=== PATIENT | male | born 1945 | race Caucasian/White ===

== ENCOUNTER 2017-02-01 16:27 | Inpatient (IN) | payer OTHER, MEDICARE ==
[~2017-02-01] VITALS: Ht 175.3 cm; Wt 92.2 kg
[~2017-02-01 16:27] MED LIST: ALBU2.5V INH; ALBU8.5H5 INH; AMLO5TAB2 PO; BLOOD PRESSURE PILL PO; DIAZ5TAB PO; LANS30CA PO; MECL25TA4 PO; MOME13HF INH; [UNRECOGNIZED DRUG - REMARK] PO
[2017-02-01] MEDS ORDERED: ALBUTEROL/IPRATROPIUM 2.5MG/0.5MG, 3 ML NPPB ONE (17:00)
[2017-02-01 17:11] LABS: HEMATOCRIT 46.5 % (39.2-51.8); WHITE BLOOD COUNT 13.8 x10^3/uL (3.4-10)
[2017-02-01 17:23] LABS: BLOOD UREA NITROGEN 12 mg/dL (7-18)
[2017-02-01 17:28] LABS: IS PT STATUS REG ER OR PRE ER? YES
[2017-02-01] MEDS ORDERED: CEFTRIAXONE PMX 1GM/50ML 50 ML IV ONE (18:30)
[2017-02-01] MEDS ORDERED: AZITHROMYCIN 500 MG in SODIUM CHLORIDE 0.9% 250 ML IV ONE (18:30)
[2017-02-01] MEDS: SODIUM CHLORIDE 0.9% 1,000 ML IV SCH ×2 (19:07→21:00)
[2017-02-01] MEDS ORDERED: ONDANSETRON 2MG/ML, 2ML IVPush PRN (19:30)
[2017-02-01] MEDS ORDERED: ACETAMINOPHEN 325 MG TABLET PO PRN (19:30)
[2017-02-01] MEDS ORDERED: morphine SULFATE 10 MG/ML, 1ML IVPush PRN (19:30)
[2017-02-01 19:54] VITALS: BP 120/67
[2017-02-01] MEDS: CEFTRIAXONE PMX 1GM/50ML 50 ML IV SCH (20:00)
[2017-02-01] MEDS: HYDROcodone/APAP 10/325 MG TABLET PO PRN (21:13)
[2017-02-01] MEDS: AZITHROMYCIN 500 MG in SODIUM CHLORIDE 0.9% 250 ML IV SCH (21:14)
[2017-02-01] MEDS: ENOXAPARIN 40 MG/0.4 ML SQ SCH (21:14)
[2017-02-01] MEDS: PANTOPROZOLE 40MG TABLET PO SCH (21:48)
[2017-02-02 02:59] VITALS: BP 122/63
[2017-02-02] MEDS ORDERED: ALBUTEROL/IPRATROPIUM 2.5MG/0.5MG, 3 ML NPPB SCH (06:00)
[2017-02-02 06:20] LABS: HEMATOCRIT 43.8 % (39.2-51.8); HEMOGLOBIN 14.8 g/dL (13.7-18.0); WHITE BLOOD COUNT 11.3 x10^3/uL (3.4-10)
[2017-02-02 06:34] LABS: BLOOD UREA NITROGEN 14 mg/dL (7-18)
[2017-02-02 06:58] VITALS: BP 128/79
[2017-02-02] MEDS ORDERED: PANTOPROZOLE 40MG TABLET PO SCH (07:30)
[2017-02-02] MEDS: SODIUM CHLORIDE 0.9% 1,000 ML IV SCH (08:45)
[2017-02-02] MEDS: AMLODIPINE 5 MG TABLET PO SCH (08:46)
[2017-02-02] MEDS: PANTOPROZOLE 40MG TABLET PO SCH ×2 (08:46→22:29)
[2017-02-02] MEDS: FLUTICASONE/VILANTEROL 200-25MCG/INH INH SCH (08:59)
[2017-02-02] MEDS: ALBUTEROL/IPRATROPIUM 2.5MG/0.5MG, 3 ML NPPB SCH ×3 (09:00→19:43)
[2017-02-02 13:19] VITALS: BP 131/69
[2017-02-02] MEDS: HYDROcodone/APAP 10/325 MG TABLET PO PRN (19:08)
[2017-02-02] MEDS: DIAZEPAM 5 MG TABLET PO PRN (19:08)
[2017-02-02] MEDS: ENOXAPARIN 40 MG/0.4 ML SQ SCH (19:36)
[2017-02-02] MEDS: CEFTRIAXONE PMX 1GM/50ML 50 ML IV SCH (19:36)
[2017-02-02] MEDS: AZITHROMYCIN 500 MG in SODIUM CHLORIDE 0.9% 250 ML IV SCH (19:41)
[2017-02-02 20:01] VITALS: BP 154/84
[2017-02-03 02:36] VITALS: BP 128/70
[2017-02-03 05:21] LABS: HEMATOCRIT 41.2 % (39.2-51.8); HEMOGLOBIN 14.1 g/dL (13.7-18.0); WHITE BLOOD COUNT 11.2 x10^3/uL (3.4-10)
[2017-02-03 05:34] LABS: BLOOD UREA NITROGEN 16 mg/dL (7-18)
[2017-02-03] MEDS ORDERED: NICOTINE 21 MG/24 HR PATCH.TD24 TD ONE (07:30)
[2017-02-03] MEDS: HYDROcodone/APAP 10/325 MG TABLET PO PRN ×3 (07:42→19:53)
[2017-02-03] MEDS: FLUTICASONE/VILANTEROL 200-25MCG/INH INH SCH (07:42)
[2017-02-03] MEDS: AMLODIPINE 5 MG TABLET PO SCH (07:42)
[2017-02-03 07:45] VITALS: BP 131/74
[2017-02-03] MEDS: ALBUTEROL/IPRATROPIUM 2.5MG/0.5MG, 3 ML NPPB SCH ×4 (08:36→19:25)
[2017-02-03] MEDS ORDERED: ALBUTEROL/IPRATROPIUM 2.5MG/0.5MG, 3 ML NPPB PRN (09:00)
[2017-02-03] MEDS ORDERED: POTASSIUM CHLORIDE 20 MEQ TAB.ER.PRT PO ONE (10:00)
[2017-02-03] MEDS ORDERED: FUROSEMIDE 40 MG/4 ML IV ONE (10:00)
[2017-02-03] MEDS: GUAIFENESIN 100 MG/5 ML, 10ML UDC PO PRN ×2 (13:54→19:47)
[2017-02-03 14:00] VITALS: BP 130/74
[2017-02-03 16:50] VITALS: BP 142/83
[2017-02-03] MEDS: PANTOPROZOLE 40MG TABLET PO SCH (19:47)
[2017-02-03] MEDS: CEFTRIAXONE PMX 1GM/50ML 50 ML IV SCH (19:47)
[2017-02-03] MEDS: ENOXAPARIN 40 MG/0.4 ML SQ SCH (19:47)
[2017-02-03] MEDS: DIAZEPAM 5 MG TABLET PO PRN ×2 (19:48→19:59)
[2017-02-03] MEDS: AZITHROMYCIN 500 MG in SODIUM CHLORIDE 0.9% 250 ML IV SCH (19:51)
[2017-02-03 20:00] VITALS: BP 138/72
[2017-02-04 01:46] VITALS: BP 148/74
[2017-02-04] MEDS: HYDROcodone/APAP 10/325 MG TABLET PO PRN ×4 (02:59→20:52)
[2017-02-04 05:29] LABS: BLOOD UREA NITROGEN 15 mg/dL (7-18)
[2017-02-04 06:01] LABS: HEMATOCRIT 42.7 % (39.2-51.8); HEMOGLOBIN 14.4 g/dL (13.7-18.0); WHITE BLOOD COUNT 8.6 x10^3/uL (3.4-10)
[2017-02-04] MEDS: ALBUTEROL/IPRATROPIUM 2.5MG/0.5MG, 3 ML NPPB SCH ×4 (07:10→19:29)
[2017-02-04 08:30] VITALS: BP 136/75
[2017-02-04] MEDS: FLUTICASONE/VILANTEROL 200-25MCG/INH INH SCH (08:49)
[2017-02-04] MEDS: GUAIFENESIN 100 MG/5 ML, 10ML UDC PO PRN (08:49)
[2017-02-04] MEDS: AMLODIPINE 5 MG TABLET PO SCH (08:50)
[2017-02-04 13:10] VITALS: BP 162/85
[2017-02-04 14:53] VITALS: BP 154/82
[2017-02-04] MEDS ORDERED: ONDANSETRON 2MG/ML, 2ML IVPush PRN (19:00)
[2017-02-04] MEDS ORDERED: ACETAMINOPHEN 325 MG TABLET PO PRN (19:00)
[2017-02-04 20:43] VITALS: BP 136/76
[2017-02-04] MEDS: PANTOPROZOLE 40MG TABLET PO SCH (20:52)
[2017-02-04] MEDS: CEFTRIAXONE PMX 1GM/50ML 50 ML IV SCH (20:53)
[2017-02-04] MEDS: ENOXAPARIN 40 MG/0.4 ML SQ SCH (20:55)
[2017-02-04] MEDS: AZITHROMYCIN 500 MG in SODIUM CHLORIDE 0.9% 250 ML IV SCH (21:40)
[2017-02-05 02:50] VITALS: BP 129/83
[2017-02-05] MEDS: HYDROcodone/APAP 10/325 MG TABLET PO PRN ×4 (02:53→23:01)
[2017-02-05 05:51] LABS: HEMATOCRIT 41.6 % (39.2-51.8); HEMOGLOBIN 14.3 g/dL (13.7-18.0); WHITE BLOOD COUNT 8.3 x10^3/uL (3.4-10)
[2017-02-05] MEDS: GUAIFENESIN 100 MG/5 ML, 10ML UDC PO PRN (05:59)
[2017-02-05 06:34] LABS: BLOOD UREA NITROGEN 14 mg/dL (7-18)
[2017-02-05 07:21] VITALS: BP 136/68
[2017-02-05] MEDS: AMLODIPINE 5 MG TABLET PO SCH (08:00)
[2017-02-05] MEDS: FLUTICASONE/VILANTEROL 200-25MCG/INH INH SCH (08:01)
[2017-02-05] MEDS: ALBUTEROL/IPRATROPIUM 2.5MG/0.5MG, 3 ML NPPB SCH ×4 (08:05→18:52)
[2017-02-05 12:37] VITALS: BP 129/73
[2017-02-05 19:20] VITALS: BP 157/76
[2017-02-05] MEDS: PANTOPROZOLE 40MG TABLET PO SCH (20:28)
[2017-02-05] MEDS: CEFTRIAXONE PMX 1GM/50ML 50 ML IV SCH (20:28)
[2017-02-05] MEDS: ENOXAPARIN 40 MG/0.4 ML SQ SCH (20:29)
[2017-02-05] MEDS ORDERED: IPRATROPIUM 0.5 MG/2.5 ML INHA HHN SCH (21:00)
[2017-02-05] MEDS: AZITHROMYCIN 500 MG in SODIUM CHLORIDE 0.9% 250 ML IV SCH (22:02)
[2017-02-06 01:29] VITALS: BP 133/69
[2017-02-06 07:00] VITALS: BP 143/76
[2017-02-06] MEDS: HYDROcodone/APAP 10/325 MG TABLET PO PRN ×2 (07:05→13:41)
[2017-02-06] MEDS: ALBUTEROL/IPRATROPIUM 2.5MG/0.5MG, 3 ML NPPB SCH ×2 (07:25→11:00)
[2017-02-06] MEDS: AMLODIPINE 5 MG TABLET PO SCH (08:29)
[2017-02-06] MEDS: FLUTICASONE/VILANTEROL 200-25MCG/INH INH SCH (08:29)
[2017-02-06] MEDS ORDERED: HYDR-3307 PO (09:32)
[2017-02-06] MEDS ORDERED: PRED10TA PO (14:01)
[2017-02-06 14:23] VITALS: BP 147/87
== END 2017-02-06 15:15 | disposition home or self-care (01) | DRG 871 ==
LOC: ED 17:48 → EDIP 18:12 → 4WST 19:40 → 4NOR 02-04 14:35 → DCLOUNGE 02-06 14:50
PROVIDERS: ADMIT Hospitalist; ATTEND Hospitalist
DX: A41.9 Sepsis, unspecified organism (principal); J96.01 Acute respiratory failure with hypoxia; J18.1 Lobar pneumonia, unspecified organism; J44.0 Chronic obstructive pulmonary disease with (acute) lower respiratory infection; J44.1 Chronic obstructive pulmonary disease with (acute) exacerbation; F17.210 Nicotine dependence, cigarettes, uncomplicated; I10 Essential (primary) hypertension; Y95 Nosocomial condition; Z90.49 Acquired absence of other specified parts of digestive tract; Z79.899 Other long term (current) drug therapy
CPT/HCPCS: 36415; 71010; 80048; 82040; 83735; 84100; 84484; 85025; 93005; 94640; 96365; J0456; J0696; J1650; J1940; J7620; J7030; J7050; J7512

== ENCOUNTER → 2017-03-29 | Outpatient (CLI) | payer MEDICARE, OTHER ==
[~2017-03-29] MED LIST changes: +HYDR-3307 PO; +PRED10TA PO
== END | disposition home or self-care (01) ==
LOC: CFH 14:35
PROVIDERS: ATTEND Nurse Practitioner Family
DX: R91.8 Other nonspecific abnormal finding of lung field (principal); J44.1 Chronic obstructive pulmonary disease with (acute) exacerbation; Z87.81 Personal history of (healed) traumatic fracture
CPT/HCPCS: 71020

== ENCOUNTER 2017-05-11 20:00 | Emergency (ER) | payer OTHER ==
[~2017-05-11] VITALS: Ht 175.3 cm; Wt 90.0 kg
[2017-05-11 20:08] VITALS: BP 116/64
[2017-05-11] MEDS ORDERED: SODIUM CHLORIDE FLUSH 10ML SYR IVF ONE (20:30)
[2017-05-11 20:43] LABS: BASOPHILS # (AUTO) 0.09 x10^3/uL (0-0.1); BASOPHILS % (AUTO) 1 % (0-1); EOSINOPHILS % (AUTO) 15 % (1-7); LYMPHOCYTES % (AUTO) 21 % (22-44); MD NO; MEAN CORPUSCULAR VOLUME 88.3 fL (81-97); MEAN PLATELET VOLUME 8.3 fL (7.4-10.4); MONOCYTES # (AUTO) 0.44 x10^3/uL (0.2-0.8); MONOCYTES % (AUTO) 5 % (2-9); NEUTROPHILS # (AUTO) 4.87 x10^3/uL (1.8-6.8); NEUTROPHILS % (AUTO) 59 % (42-75); PLATELET COUNT 232 x10^3/uL (130-400); RED CELL DISTRIBUTION WIDTH 14.1 % (9.4-14.8)
[2017-05-11 20:53] LABS: ALANINE AMINOTRANSFERASE 26 U/L (12-78); ANION GAP 9 mmol/L (5-15); CALCIUM 8.4 mg/dL (8.5-10.1); CHLORIDE 102 mmol/L (98-107); CREATININE 0.92 mg/dL (0.7-1.3)
[2017-05-11 20:57] LABS: ALKALINE PHOSPHATASE 77 U/L (45-117); BILIRUBIN,TOTAL 0.5 mg/dL (0.2-1.0); TOTAL PROTEIN 7.6 g/dL (6.4-8.2); TROPONIN I < 0.015 ng/mL (0.000-0.045)
[2017-05-11] MEDS ORDERED: ALBUTEROL/IPRATROPIUM 2.5MG/0.5MG, 3 ML NPPB ONE (21:00)
== END 2017-05-11 21:26 | disposition home or self-care (01) ==
LOC: ED 20:31
DX: J44.1 Chronic obstructive pulmonary disease with (acute) exacerbation (principal); I10 Essential (primary) hypertension; Z87.891 Personal history of nicotine dependence; Z90.49 Acquired absence of other specified parts of digestive tract
CPT/HCPCS: 36415; 71010; 80053; 83880; 84484; 85025; 93005; 94640; 99285; J7512; J7620

== ENCOUNTER → 2017-10-25 | Outpatient (CLI) | payer MEDICARE, OTHER ==
[~2017-10-25] MED LIST changes: +FURO10VI37 IV; +PIPE4.5V3 IVPB; +TERBINAFINE 1% TP; +UMEC1DIS INH
== END ==
LOC: CFH 10:22
PROVIDERS: ATTEND Nurse Practitioner
DX: J43.2 Centrilobular emphysema (principal); Z87.891 Personal history of nicotine dependence
CPT/HCPCS: G0297

== ENCOUNTER → 2018-09-26 | Outpatient (CLI) | payer MEDICARE, OTHER ==
[~2018-09-26] MED LIST changes: +AMLO-150 PO; -AMLO5TAB2 PO; +OMNIPAQUE 350 MG/ML, 100ML BOTTLE ONE
== END | disposition home or self-care (01) ==
LOC: CFH 15:48
PROVIDERS: ATTEND Nurse Practitioner
DX: J43.2 Centrilobular emphysema (principal); R91.8 Other nonspecific abnormal finding of lung field
CPT/HCPCS: 71250; Q9967

== ENCOUNTER 2019-05-03 10:56 | Outpatient (CLI) | payer MEDICARE, OTHER ==
[~2019-05-03 10:56] MED LIST changes: -HYDR-3307 PO; +HYDR-36 PO; -OMNIPAQUE 350 MG/ML, 100ML BOTTLE ONE
== END 2019-05-03 23:59 | disposition home or self-care (01) ==
LOC: CFH 10:56
PROVIDERS: ATTEND Nurse Practitioner
DX: R91.8 Other nonspecific abnormal finding of lung field (principal); J43.9 Emphysema, unspecified; F17.200 Nicotine dependence, unspecified, uncomplicated; Z72.89 Other problems related to lifestyle; Z79.82 Long term (current) use of aspirin; Z79.899 Other long term (current) drug therapy
CPT/HCPCS: 71250

== ENCOUNTER 2020-02-19 09:09 | Outpatient (CLI) | payer MEDICARE, OTHER ==
[~2020-02-19 09:09] MED LIST changes: +HYDR-3246 PO; -HYDR-36 PO; +MECL-101 PO; -MECL25TA4 PO
== END 2020-02-19 23:59 | disposition home or self-care (01) ==
LOC: CFH 09:09
PROVIDERS: ATTEND Nurse Practitioner Family
DX: K43.9 Ventral hernia without obstruction or gangrene (principal); R91.8 Other nonspecific abnormal finding of lung field; J84.10 Pulmonary fibrosis, unspecified; R19.09 Other intra-abdominal and pelvic swelling, mass and lump
CPT/HCPCS: 71250; 76705